=== PATIENT | male | born 1975 | race Caucasian/White ===

== ENCOUNTER 2016-12-24 07:48 | Observation (INO) | payer OTHER ==
[2016-12-24] MEDS ORDERED: Alum-Mag Hydrox-Simethicone Susp (30 mL) PO STA (08:03)
--- NOTE | 2016-12-24 08:03 | ED PDOC ---
Arrival/HPI - General Chief Complaint: Abdominal Pain Time Seen by Provider: 12/24/16 07:53 Historian: Patient - History of Present Illness Narrative History of Present Illness (Text): 12/24/16 08:00 Joel Hung is a 41 year old male, who presents to the emergency department complaining of epigastric pain since last night. Patient reports the pain radiates to his lower back and has had two episodes of diarrhea. He also states the pain is worse when laying down. Patient denies any fever, chest pain, nausea , vomiting, dysuria, frequency, or other complaints. PMD: Time/Duration: Other (since last night) Symptom Onset: Sudden Symptom Course: Unchanged Modifying Factors (Text): worse when laying down Associated Symptoms (Text): lower back pain and diarrhea Past Medical History - Provider Review Nursing Documentation Reviewed: Yes - Infectious Disease Hx of Infectious Diseases: None - Psychiatric Hx Substance Use: No Family/Social History - Physician Review Nursing Documentation Reviewed: Yes Family/Social History: Unknown Family HX Smoking Status: Heavy Smoker > 10 Cigarettes Daily Hx Alcohol Use: Yes Frequency of alcohol use: Socially Hx Substance Use: No Allergies/Home Meds Allergies/Adverse Reactions: Allergies No Known Allergies Allergy (Verified 12/24/16 07:55) Home Medications: Home Meds Medication Instructions Recorded Confirmed No Known Home Med 12/24/16 12/24/16 Review of Systems - Review of Systems Constitutional: absent: Fevers Respiratory: absent: SOB Gastrointestinal: Abdominal Pain (epigastric), Diarrhea. absent: Nausea, Vomiting Genitourinary Male: absent: Dysuria, Frequency Musculoskeletal: Back Pain (lower back pain) Neurological: absent: Headache Physical Exam Vital Signs Reviewed: Yes Vital Signs Temp Pulse Resp BP Pulse Ox 12/24/16 09:26 58 L 18 130/87 98 12/24/16 07:50 98 F 72 18 136/87 97 Temperature: Afebrile Blood Pressure: Normal Pulse: Regular Respiratory Rate: Normal Appearance: Positive for: Well-Appearing, Non-Toxic, Comfortable Pain Distress: None Mental Status: Positive for: Alert and Oriented X 3 - Systems Exam Head: Present: Atraumatic, Normocephalic Pupils: Present: PERRL Extroacular Muscles: Present: EOMI Conjunctiva: Present: Normal Respiratory/Chest: Present: Clear to Auscultation, Good Air Exchange. No: Respiratory Distress, Accessory Muscle Use Cardiovascular: Present: Regular Rate and Rhythm, Normal S1, S2. No: Murmurs Abdomen: Present: Tenderness (epigastric tenderness), Normal Bowel Sounds. No: Distention, Peritoneal Signs, Guarding Upper Extremity: Present: Normal Inspection. No: Cyanosis, Edema Lower Extremity: Present: Normal Inspection. No: Edema Neurological: Present: GCS=15, CN II-XII Intact, Speech Normal Skin: Present: Warm, Dry, Normal Color. No: Rashes Psychiatric: Present: Alert, Oriented x 3, Normal Insight, Normal Concentration Medical Decision Making ED Course and Treatment: 12/24/16 08:00 Impression: 41 year old male with epigastric tenderness, no guarding. Differential Diagnosis included but are not limited to: gastritis vs. pancreatitis Plan: --Labs -- Pepcid and Maalox -- Reassess and disposition Progress Notes: 12/24/16 11:04 Patient noted to have elevated lipase and lipids. Case was discussed with Dr. Magnus Brunson and will place on observation for pancreatitis. - Lab Interpretations Lab Results: 12/24/16 08:25 12/24/16 08:25 Lab Results 12/24/16 09:40: Triglycerides 279 H, Cholesterol 264 H, LDL Cholesterol Direct 197 H, HDL Cholesterol 39 12/24/16 08:25: Sodium 143, Potassium 4.3, Chloride 104, Carbon Dioxide 26, Anion Gap 17, BUN 15, Creatinine 0.8, Est GFR ( Amer) > 60, Est GFR (Non- Af Amer) > 60, Random Glucose 103, Calcium 9.5, Total Bilirubin 0.5, AST 26, ALT 50, Alkaline Phosphatase 58, Total Protein 7.2, Albumin 4.5, Globulin 2.7, Albumin/Globulin Ratio 1.7, Lipase 1001 H 12/24/16 08:25: WBC 6.4, RBC 5.24, Hgb 15.4, Hct 43.3, MCV 82.6, MCH 29.4, MCHC 35.6, RDW 13.1, Plt Count 262, MPV 10.0, Gran % 43.1 L, Lymph % (Auto) 45.7 H, Mcleod % (Auto) 6.5 H, Eos % (Auto) 4.4, Baso % (Auto) 0.3, Gran # 2.77, Lymph # 2.9, Mcleod # 0.4, Eos # 0.3, Baso # 0.02 I have reviewed the lab results: Yes - RAD Interpretation Radiology Orders: 12/24/16 09:31 ABDOMEN COMPLETE [US] Stat - Medication Orders Current Medication Orders: Discontinued Medications Al Hydrox/Mg Hydrox/Simethicone (Maalox Plus 30 Ml) 30 ml PO STAT STA Stop: 12/24/16 08:04 Last Admin: 12/24/16 08:12 Dose: 30 ml Famotidine (Pepcid) 20 mg IVP STAT STA Stop: 12/24/16 08:03 Last Admin: 12/24/16 08:12 Dose: 20 mg Sodium Chloride (Sodium Chloride 0.9%) 1,000 mls @ 999 mls/hr IV .Q1H1M STA Stop: 12/24/16 10:30 Last Admin: 12/24/16 09:35 Dose: 999 mls/hr Sodium Chloride (Sodium Chloride 0.9%) 1,000 mls @ 999 mls/hr IV .Q1H1M STA Stop: 12/24/16 10:31 Last Admin: 12/24/16 10:58 Dose: 999 mls/hr Ketorolac Tromethamine (Toradol) 30 mg IVP STAT STA Stop: 12/24/16 09:41 Last Admin: 12/24/16 09:48 Dose: 30 mg - Scribe Statement The provider has reviewed the documentation as recorded by the Meseret Mccullough Provider Scribe Attestation: All medical record entries made by the Meseret were at my direction and personally dictated by me. I have reviewed the chart and agree that the record accurately reflects my personal performance of the history, physical exam, medical decision making, and the department course for this patient. I have also personally directed, reviewed, and agree with the discharge instructions and disposition. Disposition/Present on Arrival - Present on Arrival Any Indicators Present on Arrival: No History of DVT/PE: No History of Uncontrolled Diabetes: No Urinary Catheter: No History of Decub. Ulcer: No History Surgical Site Infection Following: None - Disposition Have Diagnosis and Disposition been Completed?: Yes Diagnosis: Pancreatitis Disposition Time: 10:15 Patient Plan: Admission Condition: FAIR
[2016-12-24 08:38] LABS: BASO # 0.02 K/mm3 (0.0-2.0); BASO % 0.3 % (0.0-3.0); EOS # 0.3 (0.0-0.7); EOS % 4.4 % (1.5-5.0); GRAN # 2.77 (1.4-6.5); GRAN % 43.1 % (50.0-68.0); HEMATOCRIT 43.3 % (42.0-52.0); LYMPH # 2.9 (1.2-3.4); LYMPH % 45.7 % (22.0-35.0); MEAN CELL VOLUME 82.6 fl (80.0-105.0); MEAN CORPUSCULAR HEMOGLOBIN 29.4 pg (25.0-35.0); MEAN CORPUSCULAR HGB CONC 35.6 g/dl (31.0-37.0); MONO # 0.4 (0.1-0.6); MONO % 6.5 % (1.0-6.0); RED CELL DISTRIBUTION WIDTH 13.1 % (11.5-14.5); WHITE BLOOD COUNT 6.4 10^3/ul (4.5-11.0)
[2016-12-24 08:48] LABS: ALB/GLOB RATIO 1.7 (1.1-1.8); ALKALINE PHOSPHATASE 58 U/L (38-126); ALT/SGPT 50 U/L (7-56); AST/SGOT 26 U/L (17-59); BILIRUBIN,TOTAL 0.5 mg/dL (0.2-1.3); BLOOD UREA NITROGEN 15 mg/dL (7-21); CALCIUM 9.5 mg/dL (8.4-10.5); CARBON DIOXIDE 26 mmol/L (21-33); CHLORIDE 104 mmol/L (98-107); GFR AFRICAN-AMERICAN > 60; GLUCOSE,RANDOM 103 mg/dL (70-110); LIPASE 1001 U/L (23-300); POTASSIUM 4.3 mmol/L (3.6-5.0); SODIUM 143 mmol/L (132-148); TOTAL PROTEIN 7.2 g/dL (5.8-8.3)
[2016-12-24] MEDS ORDERED: Sodium Chloride 0.9% 1,000 ML IV STA ×2 (09:30→09:31)
[2016-12-24 09:51] LABS: CHOLESTEROL 264 mg/dL (130-200)
--- NOTE | 2016-12-24 11:15 | US ---
HISTORY: abd pain r/o cholecystitis r/o biliary colic COMPARISON: None. TECHNIQUE: Grayscale imaging was performed. FINDINGS: LIVER: Measures 17.2 cm. There is diffuse increased echogenicity of the liver parenchyma. No mass. No intrahepatic bile duct dilatation. GALLBLADDER: The gallbladder is well distended without gallstones, wall thickening or pericholecystic fluid. The sonographic Montejo's sign is negative. COMMON BILE DUCT: Measures 4.7 mm. No stones. No dilatation. PANCREAS: The pancreas is normal in size and echotexture. No mass. No ductal dilatation. RIGHT KIDNEY: Measures 11.3cm. Normal echogenicity. No calculus, mass, or hydronephrosis. LEFT KIDNEY: Measures 13 pointcm. Normal echogenicity. No calculus, mass, or hydronephrosis. SPLEEN: Normal in size and contour. No mass. AORTA: No aneurysmal dilatation. IVC: Unremarkable. OTHER FINDINGS: None. IMPRESSION: Mild hepatomegaly. Diffuse increased echogenicity in the liver may reflect hepatic steatosis however parenchymal infectious/ inflammatory etiologies cannot be entirely excluded. Clinical and laboratory correlation is advised. No evidence of cholelithiasis or biliary dilatation.
--- NOTE | 2016-12-24 13:19 | CP.PCM.HP ---
<STEPHANIA MONTES - Last Filed: 12/24/16 13:32> History of Present Illness - History of Present Illness History of Present Illness: Mr. Hung is a 41yo M with PMH of GERD and tobacco use who presented to the ED with epigastric pain radiating to the lower back. pain started day night after pain had a few alcoholic drinks with friends. pt states he drank 2-3 large beers and denies any new foods. pt had baseline of heartburn after meals that he takes a couple of Advil or Zantac pills that usually help. However, pt states that his pain this time was different, and he has never had this kind of pain before. Pain 9/10 when presenting to the hospital, and described as being intermittent (every 5 minutes) and achy, a/w 2 episodes of diarrhea (non bloody ; last time was yesterday). Pt denies n/v, fevers/chills, cp,sob, palpitations, headaches, weakness, cough. 10-point ROS was reviewed and otherwise unremarkable. PMH: tobacco use, GERD PSH: none Meds: none Allergies: NKDA SHx: >1pack/day tobacco, occasional ETOH (beer), occasional marijuana use, denies other substance abuse FHx: non-contributory PMD: doesn't have one Present on Admission - Present on Admission Any Indicators Present on Admission: No History of DVT/PE: No History of Uncontrolled Diabetes: No Review of Systems - Review of Systems All systems: reviewed and no additional remarkable complaints except (as per HPI ) Past Patient History - Infectious Disease Hx of Infectious Diseases: None - Past Medical History & Family History Past Medical History?: Yes - Past Social History Smoking Status: Heavy Smoker > 10 Cigarettes Daily Alcohol: Occasional Drugs: Cannabis - CARDIAC Hx Cardiac Disorders: No - PULMONARY Hx Respiratory Disorders: No - NEUROLOGICAL Hx Neurological Disorder: No - HEENT Hx HEENT Problems: No - RENAL Hx Chronic Kidney Disease: No - ENDOCRINE/METABOLIC Hx Endocrine Disorders: No - HEMATOLOGICAL/ONCOLOGICAL Hx Blood Disorders: No - INTEGUMENTARY Hx Dermatological Problems: No - MUSCULOSKELETAL/RHEUMATOLOGICAL Hx Musculoskeletal Disorders: No - GASTROINTESTINAL Hx Gastrointestinal Disorders: Yes Hx Gastroesophageal Reflux: Yes - GENITOURINARY/GYNECOLOGICAL Hx Genitourinary Disorders: No - PSYCHIATRIC Hx Psychophysiologic Disorder: Yes Hx Substance Use: Yes (marijuana and tobacco) - SURGICAL HISTORY Hx Surgeries: No Meds Allergies/Adverse Reactions: Allergies Allergy/AdvReac Type Severity Reaction Status Date / Time No Known Allergies Allergy Verified 12/24/16 13:30 Physical Exam - Constitutional Appears: Well, No Acute Distress - Head Exam Head Exam: ATRAUMATIC, NORMAL INSPECTION - Eye Exam Eye Exam: EOMI, Normal appearance, PERRL Pupil Exam: NORMAL ACCOMODATION - ENT Exam ENT Exam: Mucous Membranes Moist - Neck Exam Neck exam: Positive for: Full Rom, Normal Inspection - Respiratory Exam Respiratory Exam: Clear to Auscultation Bilateral, NORMAL BREATHING PATTERN. absent: Rales, Rhonchi, Wheezes, Respiratory Distress - Cardiovascular Exam Cardiovascular Exam: RRR, +S1, +S2 - GI/Abdominal Exam GI & Abdominal Exam: Normal Bowel Sounds, Soft, Tenderness (single point of tenderness caudal to xyphoid process in epigastric region; tender to deep palpation). absent: Distended, Guarding, Rebound - Extremities Exam Extremities exam: Positive for: full ROM, normal inspection - Back Exam Back exam: NORMAL INSPECTION. absent: tenderness - Neurological Exam Neurological exam: Alert, Oriented x3 - Psychiatric Exam Psychiatric exam: Normal Mood - Skin Skin Exam: Normal Color, Warm Results - Vital Signs Recent Vital Signs: Last Vital Signs Temp 98.7 F 12/24/16 12:36 Pulse 65 12/24/16 12:36 Resp 18 12/24/16 12:36 BP 142/96 H 12/24/16 12:36 Pulse Ox 97 12/24/16 12:36 - Labs Result Diagrams: 12/24/16 08:25 12/24/16 08:25 Labs: Laboratory Results - last 24 hr 12/24/16 11:47 Alcohol, Quantitative < 10 Assessment & Plan - Assessment and Plan (Free Text) Assessment: 41yo M PMH GERD and tobacco use presents with epigastric pain x2d a/w diarrhea after drinking ETOH. Likely due to pancreatitis given presentation, imaging and labwork. HLD also found on labs. Tobacco use is also an issue and pt states he' s tried to quit before and failed. Plan: 1. Epigastric pain likely 2/2 pancreatitis r/o cholecystic dz vs GERD - Abd US showed mild hepatomegaly w/ steatosis vs infectious/inflammatory changes - Lipase 1001 - NPO - LR 200 - PTX - Zofran PRN - Pain mgmt: motrin, toradol PRN - at this time, GI was not consulted due to what seem like uncomplicated pancreatitis 2/2 ETOH 2. Hx of GERD - PTX 3. HLD - Lipitor 20mg - encouraged pt to see a PMD for medical management 4. tobacco use - encouraged cessation - nicotine patch Patient was seen, evaluated and discussed w/ attending, Dr. Boy Montes PGY1 pager #[phone] - Date & Time Date: 12/24/16 Time: 13:44 <Jessenia Brunson - Last Filed: 12/24/16 17:26> Results - Vital Signs Recent Vital Signs: Last Vital Signs Temp 98.7 F 12/24/16 12:36 Pulse 65 12/24/16 12:36 Resp 18 12/24/16 12:36 BP 142/96 H 12/24/16 12:36 Pulse Ox 97 12/24/16 12:36 - Labs Result Diagrams: 12/24/16 08:25 12/24/16 08:25 Labs: Laboratory Results - last 24 hr 12/24/16 12/24/16 12/24/16 11:44 11:47 13:08 Phosphorus 4.1 Magnesium 1.9 Urine Opiates Screen Negative Urine Methadone Screen Negative Ur Barbiturates Screen Negative Ur Phencyclidine Scrn Negative Ur Amphetamines Screen Negative U Benzodiazepines Scrn Negative U Oth Cocaine Metabols Negative U Cannabinoids Screen Positive H Alcohol, Quantitative < 10 Attending/Attestation - Attestation I have personally seen and examined this patient.: Yes I have fully participated in the care of the patient.: Yes I have reviewed all pertinent clinical information: Yes Notes (Text): I have seen and examined the patient at bedside. Agree with the above note with the following additions/ exceptions: Briefly this is 41 year old male with history of GERD, tobacco use, alcohol use, occasional marijuana use who was admitted for evaluation of epigastric pain which started after he drank 3 large beers and found to have acute pancreatitis. Will start IVF, analgesics and antiemetics. Will make patient NPO. Counselling provided regarding alcohol use and tobacco use. Nicotine patch given. Upon discharge patient will follow up with PMD of choice. Dr Jessenia Brunson
[2016-12-24] MEDS: Lactated Ringer's 1,000 ML IV SCH ×2 (13:21→18:17)
[2016-12-24 14:31] LABS: MAGNESIUM 1.9 mg/dL (1.7-2.2); PHOSPHOROUS 4.1 mg/dL (2.5-4.5)
[2016-12-24 16:32] VITALS: BMI 36.5
[2016-12-24] MEDS ORDERED: Pneumococcal 23-Valent Vaccine IM ONE (16:32)
[2016-12-24] MEDS: Pantoprazole 40 mg EC Tab PO SCH (17:19)
[2016-12-24 18:11] VITALS: O2SAT 98
[2016-12-25 04:05] VITALS: RESP 20
[2016-12-25 05:52] LABS: HEMATOCRIT 40.1 % (42.0-52.0); MEAN CELL VOLUME 82.2 fl (80.0-105.0); MEAN CORPUSCULAR HEMOGLOBIN 29.1 pg (25.0-35.0); MEAN CORPUSCULAR HGB CONC 35.4 g/dl (31.0-37.0); MEAN PLATELET VOLUME 9.7 fl (7.0-11.0); RED CELL DISTRIBUTION WIDTH 13.1 % (11.5-14.5); WHITE BLOOD COUNT 5.1 10^3/ul (4.5-11.0)
[2016-12-25] MEDS: Pantoprazole 40 mg EC Tab PO SCH (06:05)
[2016-12-25 07:25] LABS: ALB/GLOB RATIO 1.4 (1.1-1.8); ALKALINE PHOSPHATASE 57 U/L (38-126); ALT/SGPT 56 U/L (7-56); AST/SGOT 35 U/L (17-59); BILIRUBIN,TOTAL 0.6 mg/dL (0.2-1.3); BLOOD UREA NITROGEN 9 mg/dL (7-21); CALCIUM 9.3 mg/dL (8.4-10.5); CARBON DIOXIDE 29 mmol/L (21-33); CHLORIDE 104 mmol/L (95-110); GFR AFRICAN-AMERICAN > 60; GLUCOSE,RANDOM 94 mg/dL (70-110); POTASSIUM 4.5 mmol/L (3.6-5.0); SODIUM 142 mmol/L (132-148); TOTAL PROTEIN 6.3 g/dL (5.8-8.3)
[2016-12-25 07:32] VITALS: BP 125/73; PULSE 52; TEMP 97.9
[2016-12-25] MEDS: Lactated Ringer's 1,000 ML IV SCH (09:55)
--- NOTE | 2016-12-26 04:04 | CP.PCM.DIS ---
<STEPHANIA BERNARDO - Last Filed: 12/26/16 03:58> Provider - Provider Date of Admission: 12/24/16 10:15 Attending physician: Wing Baig MD Primary care physician: NO PRIMARY CARE PROVIDER Time Spent in preparation of Discharge (in minutes): 45 Hospital Course - Lab Results Lab Results: Most Recent Lab Values WBC 5.1 10^3/ul (4.5-11.0) D 12/25/16 05:30 RBC 4.88 10^6/uL (3.5-6.1) 12/25/16 05:30 Hgb 14.2 g/dL (14.0-18.0) 12/25/16 05:30 Hct 40.1 % (42.0-52.0) L 12/25/16 05:30 MCV 82.2 fl (80.0-105.0) 12/25/16 05:30 MCH 29.1 pg (25.0-35.0) 12/25/16 05:30 MCHC 35.4 g/dl (31.0-37.0) 12/25/16 05:30 RDW 13.1 % (11.5-14.5) 12/25/16 05:30 Plt Count 235 10^3/uL (120.0-450.0) 12/25/16 05:30 MPV 9.7 fl (7.0-11.0) 12/25/16 05:30 Gran % 43.1 % (50.0-68.0) L 12/24/16 08:25 Lymph % (Auto) 45.7 % (22.0-35.0) H 12/24/16 08:25 Carver % (Auto) 6.5 % (1.0-6.0) H 12/24/16 08:25 Eos % (Auto) 4.4 % (1.5-5.0) 12/24/16 08:25 Baso % (Auto) 0.3 % (0.0-3.0) 12/24/16 08:25 Gran # 2.77 (1.4-6.5) 12/24/16 08:25 Lymph # 2.9 (1.2-3.4) 12/24/16 08:25 Carver # 0.4 (0.1-0.6) 12/24/16 08:25 Eos # 0.3 (0.0-0.7) 12/24/16 08:25 Baso # 0.02 K/mm3 (0.0-2.0) 12/24/16 08:25 Sodium 142 mmol/L (132-148) 12/25/16 05:30 Potassium 4.5 mmol/L (3.6-5.0) 12/25/16 05:30 Chloride 104 mmol/L (95-110) 12/25/16 05:30 Carbon Dioxide 29 mmol/L (21-33) 12/25/16 05:30 Anion Gap 14 (10-20) 12/25/16 05:30 BUN 9 mg/dL (7-21) 12/25/16 05:30 Creatinine 0.8 mg/dL (0.5-1.4) 12/25/16 05:30 Est GFR ( Amer) > 60 12/25/16 05:30 Est GFR (Non-Af Amer) > 60 12/25/16 05:30 Random Glucose 94 mg/dL (70-110) 12/25/16 05:30 Calcium 9.3 mg/dL (8.4-10.5) 12/25/16 05:30 Phosphorus 4.1 mg/dL (2.5-4.5) 12/24/16 13:08 Magnesium 1.9 mg/dL (1.7-2.2) 12/24/16 13:08 Total Bilirubin 0.6 mg/dL (0.2-1.3) 12/25/16 05:30 AST 35 U/L (17-59) 12/25/16 05:30 ALT 56 U/L (7-56) 12/25/16 05:30 Alkaline Phosphatase 57 U/L (38-126) 12/25/16 05:30 Total Protein 6.3 g/dL (5.8-8.3) 12/25/16 05:30 Albumin 3.7 g/dL (3.0-4.8) 12/25/16 05:30 Globulin 2.6 gm/dL 12/25/16 05:30 Albumin/Globulin Ratio 1.4 (1.1-1.8) 12/25/16 05:30 Triglycerides 279 mg/dL (35-160) H 12/24/16 09:40 Cholesterol 264 mg/dL (130-200) H 12/24/16 09:40 LDL Cholesterol Direct 197 mg/dL (0-129) H 12/24/16 09:40 HDL Cholesterol 39 mg/dL (29-60) 12/24/16 09:40 Lipase 1001 U/L (23-300) H 12/24/16 08:25 Urine Opiates Screen Negative (NEGATIVE) 12/24/16 11:44 Urine Methadone Screen Negative (NEGATIVE) 12/24/16 11:44 Ur Barbiturates Screen Negative (NEGATIVE) 12/24/16 11:44 Ur Phencyclidine Scrn Negative (NEGATIVE) 12/24/16 11:44 Ur Amphetamines Screen Negative (NEGATIVE) 12/24/16 11:44 U Benzodiazepines Scrn Negative (NEGATIVE) 12/24/16 11:44 U Oth Cocaine Metabols Negative (NEGATIVE) 12/24/16 11:44 U Cannabinoids Screen Positive (NEGATIVE) H 12/24/16 11:44 Alcohol, Quantitative < 10 mg/dL (0-10) 12/24/16 11:47 - Hospital Course Hospital Course: Mr. Barlow is a 41yo M with PMH of GERD and tobacco use who presented to the ED with epigastric pain radiating to the lower back. pain started saturday night after pain had a few alcoholic drinks with friends. pt states he drank 2-3 large beers and denies any new foods. pt had baseline of heartburn after meals that he takes a couple of Advil or Zantac pills that usually help. However, pt states that his pain this time was different, and he has never had this kind of pain before. Pain 9/10 when presenting to the hospital, and described as being intermittent (every 5 minutes) and achy, a/w 2 episodes of diarrhea (non bloody ; last time was yesterday). Pt denies n/v, fevers/chills, cp,sob, palpitations, headaches, weakness, cough. Pt was transferred to med-surg floors for monitoring Pt was kept NPO, started on LR and analgesics; pt also given a nicotine patch due to his tobacco dependency. ab US showed mild hepatomegaly and fatty liver, w / no evidence of cholelithiasis or biliary dilation. The patient continued to improve overnight. In the morning, the patient was irritable and wanted to be d/ c due to work and needing to smoke. Patient even offered to have his IV removed so he can go out, have a smoke and come back. Resident was later paged about pt wanting to sign out AMA. Attending physician, and team of residents discused with Mr. barlow the benefits of staying and closely monitoring his improvement vs the risk of leaving and not advancing his diet slowly. Also discussed the risks of continuing to smoke tobacco and the benefits of cessation of ETOH, tobacco and marijuana use. PT stated that he does have insurance and that his PMD is Dr. Lubin; pt was strongly encouraged to start seeing him for management of his lipids as well as the other problems presented above. This morning, the pt is in NAD and denies any n/v/d, f/c. Pt signed out AMA. - Date & Time of H&P Date of H&P: 12/24/16 Time of H&P: 13:20 Discharge Exam - Additional Findings Additional findings: - Constitutional Appears: Well, No Acute Distress - Head Exam Head Exam: ATRAUMATIC, NORMAL INSPECTION - Eye Exam Eye Exam: EOMI, Normal appearance, PERRL Pupil Exam: NORMAL ACCOMODATION - ENT Exam ENT Exam: Mucous Membranes Moist - Neck Exam Neck exam: Positive for: Full Rom, Normal Inspection - Respiratory Exam Respiratory Exam: Clear to Auscultation Bilateral, NORMAL BREATHING PATTERN. absent: Rales, Rhonchi, Wheezes, Respiratory Distress - Cardiovascular Exam Cardiovascular Exam: RRR, +S1, +S2 - GI/Abdominal Exam GI & Abdominal Exam: Normal Bowel Sounds, Soft, Tenderness (single point of tenderness caudal to xyphoid process in epigastric region; tender to deep palpation). absent: Distended, Guarding, Rebound - Extremities Exam Extremities exam: Positive for: full ROM, normal inspection - Back Exam Back exam: NORMAL INSPECTION. absent: tenderness - Neurological Exam Neurological exam: Alert, Oriented x3 - Psychiatric Exam Psychiatric exam: Normal Mood - Skin Skin Exam: Normal Color, Warm Discharge Plan - Follow Up Plan Condition: FAIR Disposition: AGAINST MEDICAL ADVICE Referrals: PCP,NO [Primary Care Provider] - <Wing Bagi - Last Filed: 12/26/16 07:41> Provider - Provider Date of Admission: 12/24/16 10:15 Attending physician: Wing Baig MD Primary care physician: NO PRIMARY CARE PROVIDER Hospital Course - Lab Results Lab Results: Most Recent Lab Values WBC 5.1 10^3/ul (4.5-11.0) D 12/25/16 05:30 RBC 4.88 10^6/uL (3.5-6.1) 12/25/16 05:30 Hgb 14.2 g/dL (14.0-18.0) 12/25/16 05:30 Hct 40.1 % (42.0-52.0) L 12/25/16 05:30 MCV 82.2 fl (80.0-105.0) 12/25/16 05:30 MCH 29.1 pg (25.0-35.0) 12/25/16 05:30 MCHC 35.4 g/dl (31.0-37.0) 12/25/16 05:30 RDW 13.1 % (11.5-14.5) 12/25/16 05:30 Plt Count 235 10^3/uL (120.0-450.0) 12/25/16 05:30 MPV 9.7 fl (7.0-11.0) 12/25/16 05:30 Gran % 43.1 % (50.0-68.0) L 12/24/16 08:25 Lymph % (Auto) 45.7 % (22.0-35.0) H 12/24/16 08:25 Carver % (Auto) 6.5 % (1.0-6.0) H 12/24/16 08:25 Eos % (Auto) 4.4 % (1.5-5.0) 12/24/16 08:25 Baso % (Auto) 0.3 % (0.0-3.0) 12/24/16 08:25 Gran # 2.77 (1.4-6.5) 12/24/16 08:25 Lymph # 2.9 (1.2-3.4) 12/24/16 08:25 Carver # 0.4 (0.1-0.6) 12/24/16 08:25 Eos # 0.3 (0.0-0.7) 12/24/16 08:25 Baso # 0.02 K/mm3 (0.0-2.0) 12/24/16 08:25 Sodium 142 mmol/L (132-148) 12/25/16 05:30 Potassium 4.5 mmol/L (3.6-5.0) 12/25/16 05:30 Chloride 104 mmol/L (95-110) 12/25/16 05:30 Carbon Dioxide 29 mmol/L (21-33) 12/25/16 05:30 Anion Gap 14 (10-20) 12/25/16 05:30 BUN 9 mg/dL (7-21) 12/25/16 05:30 Creatinine 0.8 mg/dL (0.5-1.4) 12/25/16 05:30 Est GFR ( Amer) > 60 12/25/16 05:30 Est GFR (Non-Af Amer) > 60 12/25/16 05:30 Random Glucose 94 mg/dL (70-110) 12/25/16 05:30 Calcium 9.3 mg/dL (8.4-10.5) 12/25/16 05:30 Phosphorus 4.1 mg/dL (2.5-4.5) 12/24/16 13:08 Magnesium 1.9 mg/dL (1.7-2.2) 12/24/16 13:08 Total Bilirubin 0.6 mg/dL (0.2-1.3) 12/25/16 05:30 AST 35 U/L (17-59) 12/25/16 05:30 ALT 56 U/L (7-56) 12/25/16 05:30 Alkaline Phosphatase 57 U/L (38-126) 12/25/16 05:30 Total Protein 6.3 g/dL (5.8-8.3) 12/25/16 05:30 Albumin 3.7 g/dL (3.0-4.8) 12/25/16 05:30 Globulin 2.6 gm/dL 12/25/16 05:30 Albumin/Globulin Ratio 1.4 (1.1-1.8) 12/25/16 05:30 Triglycerides 279 mg/dL (35-160) H 12/24/16 09:40 Cholesterol 264 mg/dL (130-200) H 12/24/16 09:40 LDL Cholesterol Direct 197 mg/dL (0-129) H 12/24/16 09:40 HDL Cholesterol 39 mg/dL (29-60) 12/24/16 09:40 Lipase 1001 U/L (23-300) H 12/24/16 08:25 Urine Opiates Screen Negative (NEGATIVE) 12/24/16 11:44 Urine Methadone Screen Negative (NEGATIVE) 12/24/16 11:44 Ur Barbiturates Screen Negative (NEGATIVE) 12/24/16 11:44 Ur Phencyclidine Scrn Negative (NEGATIVE) 12/24/16 11:44 Ur Amphetamines Screen Negative (NEGATIVE) 12/24/16 11:44 U Benzodiazepines Scrn Negative (NEGATIVE) 12/24/16 11:44 U Oth Cocaine Metabols Negative (NEGATIVE) 12/24/16 11:44 U Cannabinoids Screen Positive (NEGATIVE) H 12/24/16 11:44 Alcohol, Quantitative < 10 mg/dL (0-10) 12/24/16 11:47 Attending/Attestation - Attestation I have personally seen and examined this patient.: Yes I have fully participated in the care of the patient.: Yes I have reviewed all pertinent clinical information, including history, physical exam and plan: Yes Notes (Text): 12/26/16 07:33 Attending note; Patient seen and examined with resident. Patient is a 41-year-old male is admitted with epigastric pain. Patient with a history of active smoking and alcohol abuse. Lipase is mildly elevated suggesting alcoholic pancreatitis. Currently patient denies any abdominal pain. Elevated lipid profile. Patient does not want to stay in the hospital for medical treatment. All the lab results given. Patient is advised to follow-up with PMD of choice within 2 days. Complete smoking cessation and alcohol cessation is recommended. Patient signed AGAINST MEDICAL ADVICE. Patient's by the bedside. Diagnosis; pancreatitis Active smoking Hyperlipidemia Alcohol use 12/26/16 07:40
== END 2016-12-25 13:38 | disposition left against medical advice (07) ==
LOC: ED 07:48 → ERH 10:15 → 5RNO 11:52
PROVIDERS: ADMIT Hospitalist; ATTEND Internal Medicine
DX: K85.90 Acute pancreatitis without necrosis or infection, unspecified (principal); K21.9 Gastro-esophageal reflux disease without esophagitis; M54.5 Low back pain; F17.210 Nicotine dependence, cigarettes, uncomplicated; F12.90 Cannabis use, unspecified, uncomplicated; E78.5 Hyperlipidemia, unspecified
CPT/HCPCS: 36415; 76700; 80053; 80061; 80320; 80324; 80345; 80346; 80349; 80353; 80358; 80361; 83690; 83735; 83992; 84100; 85025; 85027; 96374; 96375; 99285; G0378; J1885; J7040; J7120